=== PATIENT | male | born 1960 | race American Indian/Alaskan Native ===

== ENCOUNTER 2016-07-30 05:54 | Day surgery (SDC) | payer BC ==
[~2016-07-30 05:54] MED LIST: ANCEF/STERILE WATER 2 GM/20 ML IV NR
[2016-07-30] MEDS ORDERED: PEPCID PO NR (06:00)
[2016-07-30] MEDS ORDERED: NACL 0.9% 1000 ML 1,000 ML IV SCH (06:00)
[2016-07-30] MEDS ORDERED: VERSED IV NR ×2 (06:00→08:00)
[2016-07-30] MEDS ORDERED: NACL BACTERIOSTATIC INFILTRATI ONE (06:31)
--- NOTE | 2016-07-30 07:06 | Anesthesia Consultation ---
Anesthesia Consult and Med Hx Date of service: 07/30/16 - Airway Anesthetic Teeth Evaluation: Good ROM Head & Neck: Adequate Mental/Hyoid Distance: Adequate Mallampati Class: Class II Intubation Access Assessment: Probably Good - Pulmonary Exam CTA: Yes - Cardiac Exam Cardiac Exam: RRR - Pre-Operative Health Status ASA Pre-Surgery Classification: ASA2 Proposed Anesthetic Plan: General - Pulmonary Hx Smoking: Yes (1/2 PPD X 35 YRS) Hx Sleep Apnea: No (FLORENTIN PRESCREEN HIGH RISK) - Cardiovascular System Hx Hypertension: No - Gastrointestinal Hx Gastroesophageal Reflux Disease: Yes (food related) - Other Systems Hx Alcohol Use: Yes (2 BEERS PER DAY) Hx Cancer: No
[2016-07-30] MEDS ORDERED: ZOFRAN IV PRN (07:07)
--- NOTE | 2016-07-30 07:07 | Anesthesia Day of Surgery ---
Anesthesia Day of Surgery - Day of Surgery Patient Examined: Yes Patient H&P Reviewed: Yes Patient is NPO: Yes
[2016-07-30] MEDS ORDERED: DIPRIVAN 10 MG/ML IV ONE (07:21)
[2016-07-30] MEDS ORDERED: XYLOCAINE MPF 2% ONE (07:21)
[2016-07-30] MEDS ORDERED: DECADRON ONE (07:57)
[2016-07-30] MEDS ORDERED: WATER FOR IRRIG STERILE IR ONE (08:00)
[2016-07-30] MEDS ORDERED: PEPCID IV NR (08:00)
--- NOTE | 2016-07-30 08:39 | Short Stay Summary ---
Short Stay Documentation Date of service: 07/30/16 - History H&P: obtained from office - Allergies and Medications Current Medications: Allergies No Known Allergies Allergy (Verified 07/27/16 14:55) Home Medications Medication Instructions Recorded Confirmed Last Taken Type Aspirin [Adult Low Dose Aspirin EC] 81 mg PO DAILY 07/27/16 07/30/16 07/27/16 History Tamsulosin [Flomax] 0.4 mg PO QDAY 07/27/16 07/27/16 07/29/16 History traMADol 1 tab PO PRN PRN 07/27/16 07/27/16 07/29/16 History traZODone [Desyrel] 50 mg PO QHS 07/27/16 07/27/16 07/29/16 History Active Medications Acetaminophen/Hydrocodone Bitart ([place] 5/325) 2 each PO ONCE PRN PRN Reason: Pain, Moderate (4-6) Stop: 07/30/16 07:08 Cefazolin Sodium (Ancef/Sterile Water 2 Gm/20 Ml) 2 gm IV PREOP NR Stop: 07/30/16 23:59 Famotidine (Pepcid) 20 mg PO PREOP NR Stop: 07/30/16 23:00 Last Admin: 07/30/16 06:53 Dose: 20 mg Hydromorphone HCl (Dilaudid) 0.5 mg IV Q10MIN PRN PRN Reason: Pain , Severe (7-10) Stop: 08/02/16 07:08 Sodium Chloride (Nacl 0.9% 1000 Ml) 1,000 mls @ 75 mls/hr IV DIRECT DENTON Last Admin: 07/30/16 06:55 Dose: 75 mls/hr Midazolam HCl (Versed) 2 mg IV PREOP NR Stop: 07/30/16 23:59 Last Admin: 07/30/16 07:11 Dose: 2 mg Ondansetron HCl (Zofran) 4 mg IV ONCE PRN PRN Reason: Nausea And Vomiting Stop: 07/30/16 07:08 - Brief post op/procedure progress note Date of procedure: 07/30/16 Pre-op diagnosis: rt ureteral stone Post-op diagnosis: same Procedure: cysto, rt ureteroscopy, laser, basket stone extraction , stent with external string Anesthesia: LIDAA Surgeon: VICK MCCLURE Estimated blood loss: none Condition: stable - Hospital course Hospital course: gladys dennis, post op info on chart - Disposition Condition at discharge: Stable Disposition: DC-01 TO HOME OR SELFCARE Short Stay Discharge Plan Follow up with: PRIMARY CARE, [Primary Care Provider] - 7 Days
[2016-07-30] MEDS: DILAUDID IV PRN ×2 (08:44→09:00)
[2016-07-30] MEDS ORDERED: DILAUDID ONE (08:48)
[2016-07-30] MEDS ORDERED: NORCO 5/325 PO PRN (09:00)
--- NOTE | 2016-07-30 09:38 | Post Anesthesia Evaluation ---
- Post Anesthesia Evaluation Patient Participated: Yes Airway Patent: Yes Stable Respiratory Function: Yes Nausea/Vomiting: No Temp > 96.8F: Yes Pain Manageable: Yes Adequeate Hydration: Yes Anesthesia Complications: No
[2016-07-30 09:56] VITALS: BP 150/97
--- NOTE | 2016-07-30 10:48 | Operative Report ---
PREOPERATIVE DIAGNOSIS: Right ureteral stone. POSTOPERATIVE DIAGNOSIS: Right ureteral stone. PROCEDURE: Cystoscopy, bilateral retrograde pyelograms, right ureteroscopy, holmium laser lithotripsy, basket stone extraction, and double-J stent (6 American 26 cm with an external string). SURGEON: Richard Jo M.D. ANESTHESIA: General. ESTIMATED BLOOD LOSS: Minimal. FLUIDS: Crystalloid. COMPLICATIONS: No complications. INDICATIONS: This patient is a 56-year-old gentleman seen in the office for left bilateral stones what states was bilateral stones; however, on CT abdomen and pelvis at [facility] was found to have 2 stones in the right proximal ureter KUB in the office was negative. We discussed options. He needed ureteroscopy. His pain persisted. He agreed to proceed. DESCRIPTION OF PROCEDURE: The patient was taken to the operative suite, placed in a supine position. After adequate general anesthesia, placed in a dorsal lithotomy position, prepped and draped in a sterile fashion. Rocha-cystourethroscopy was performed with a 22 American Storz cystoscope. No urethral abnormalities. Prostate nonobstructing. Bladder, no tumors or stones were noted. Bilateral retrograde pyelograms were obtained with an 8 American Maddi catheter and 8 mL of contrast. No filling defects or obstruction. However, due to his persistent pain right ureteroscopy was performed after putting up two 0.35 guidewires mid to proximal ureter an oblong stone could be appreciated tried to engage it, it was too big. At that point, I used holmium lithotripsy using a 200 micron fiber starting at 4 lopez. The stone was broken up in fragments. A 3-American Flor basket was used to extract it. No other stones could be appreciated. He did have some edema, a 6-American 26 cm double-J stent was placed under fluoroscopic guidance with an external string he was extubated. Rectal exam was benign and taken to recovery room. He will go home on [employer]. JOB# [id number] SONG/PIERO
--- NOTE | 2016-07-31 08:59 | Fluoroscopy Report ---
Retrograde pyelogram: The noncontrasted images are unremarkable. Injection of contrast into the left ureter demonstrates an unremarkable ureter and intrarenal collecting system. Injection of contrast on the right side demonstrates a questionable transition at the UPJ with poor opacification of the intrarenal collecting system. There is no distention of the collecting system. The ureteral scope was passed on the right side with passage of wires into the renal collecting system. A right nephroureteral stent was left in place. According to the procedure note a calculus was lasered during procedure.
== END 2016-07-30 10:24 | disposition home or self-care (01) ==
LOC: OR 05:54
PROVIDERS: ATTEND Urology
DX: N20.1 Calculus of ureter (principal); F17.210 Nicotine dependence, cigarettes, uncomplicated; K21.9 Gastro-esophageal reflux disease without esophagitis; F32.9 Major depressive disorder, single episode, unspecified; Z72.89 Other problems related to lifestyle; Z79.899 Other long term (current) drug therapy; Z79.82 Long term (current) use of aspirin
CPT/HCPCS: 52356; 74420; A4217; C1758; C1769; C2617; J0690; J1100; J1170; J2250; J2405; J2704; J7030; Q9967

== ENCOUNTER 2017-11-11 19:44 | Inpatient (IN) | payer BC, OTHER ==
[2017-11-11 20:47] LABS: Basophils # (Auto) 0.1 K/mm3 (0.0-0.1); Basophils % (Auto) 0.7 % (0.0-1.8); Eosinophils % (Auto) 0.4 % (0.0-4.3); Hematocrit 46.5 % (35.5-45.6); Hemoglobin 16.2 gm/dl (11.8-15.2); Lymphocytes % (Auto) 26.5 % (13.4-35.0); Mean Corpuscular HGB Conc 35 % (32-34); Mean Corpuscular Hemoglobin 30 pg (28-32); Mean Corpuscular Volume 87 fl (84-94); Monocytes # (Auto) 0.6 K/mm3 (0.0-0.8); Monocytes % (Auto) 7.7 % (0.0-7.3); Platelet Count 210 K/mm3 (140-440); Red Blood Count 5.32 M/mm3 (3.65-5.03); Red Cell Distribution Width 13.1 % (13.2-15.2)
--- NOTE | 2017-11-11 20:56 | XRay Report ---
FINAL REPORT PROCEDURE: Chest. TECHNIQUE: Portable AP view. HISTORY: Chest pain. COMPARISON: No prior studies are available for comparison. FINDINGS: The heart size is normal. There is mild tortuosity of the thoracic aorta. The lungs are clear and well expanded. There are no pleural effusions. The soft tissues are unremarkable. The regional skeleton appears intact. IMPRESSION: No evidence of acute disease.
[2017-11-11 20:57] LABS: INR 1.14 (0.87-1.13)
[2017-11-11 20:58] LABS: Partial Thromboplastin Time 24.6 Sec. (24.2-36.6)
[2017-11-11 21:11] LABS: Alanine Aminotransferase 19 units/L (7-56); Albumin 4.3 g/dL (3.9-5); BUN/Creatinine Ratio 8; Blood Urea Nitrogen 8 mg/dL (9-20); Calcium 9.7 mg/dL (8.4-10.2); Hemolysis Index 13
[2017-11-11] MEDS ORDERED: APRESOLINE IV ONE (21:18)
[2017-11-11 21:24] LABS: Bilirubin,Urine NEG (Negative); Blood,Urine NEG (Negative); Color,Urine Straw (Yellow); Protein,Urine <15 mg/dL mg/dL (Negative); RBC,Urine < 1.0 /HPF (0.0-6.0); WBC,Urine < 1.0 /HPF (0.0-6.0)
[2017-11-11 21:38] LABS: Amphetamine Screen,Urine PRESUMPTIVE NEGATIVE; Benzodiazepines Screen,Urine PRESUMPTIVE NEGATIVE; Methadone Screen,Urine PRESUMPTIVE NEGATIVE; Opiate Screen,Urine PRESUMPTIVE NEGATIVE
[2017-11-11 22:06] LABS: Cannabinoid Screen,Urine PRESUMPTIVE POSITIVE; Cocaine Screen,Urine PRESUMPTIVE POSITIVE
[2017-11-12] MEDS ORDERED: BABY ASPIRIN PO ONE (00:30)
[2017-11-12] MEDS ORDERED: ZOFRAN IV ONE (00:30)
[2017-11-12] MEDS ORDERED: SUBLIMAZE IV ONE (00:30)
[2017-11-12] MEDS ORDERED: ATIVAN IV ONE (00:30)
--- NOTE | 2017-11-12 00:36 | Emergency Department Report ---
HPI - General Chief Complaint: Chest Pain Time Seen by Provider: 11/11/17 21:00 - HPI HPI: The patient is a 57-year-old male who presents for evaluation of chest pain. The patient reports constant midsternal moderate in severity chest pain for the past one day, exacerbated with coughing. He also reports dyspnea and mildly productive cough white sputum. He admits to binging on cocaine and crack for the past day, and concern for heart injury due to his drug use. The patient denies trauma to chest, fever, hemoptysis, unilateral leg swelling, recent immobilization, ED Past Medical Hx - Past Medical History Hx Hypertension: No Hx GERD: Yes Hx Kidney Stones: Yes - Social History Smoking Status: Current Every Day Smoker Substance Use Type: Alcohol, Cocaine - Medications Home Medications: Home Medications Medication Instructions Recorded Confirmed Last Taken Type Aspirin [Adult Low Dose Aspirin EC] 81 mg PO DAILY 07/27/16 07/30/16 07/27/16 History Tamsulosin [Flomax] 0.4 mg PO QDAY 07/27/16 07/27/16 07/29/16 History traMADol 1 tab PO PRN PRN 07/27/16 07/27/16 07/29/16 History traZODone [Desyrel] 50 mg PO QHS 07/27/16 07/27/16 07/29/16 History ED Review of Systems ROS: Stated complaint: CHEST PAIN Other details as noted in HPI Constitutional: denies: fever ENT: denies: throat or neck pain Respiratory: denies: cough, reports shortness of breath Cardiovascular: Reports chest pain Endocrine: denies unexplained weight loss or gain Gastrointestinal: denies: abdominal pain, nausea Genitourinary: denies: dysuria Musculoskeletal: denies: leg swelling Skin: denies: rash Neurological: denies: headache Hematological/Lymphatic: denies: easy bleeding or easy bruising Psych: denies sadness or hopelessness Physical Exam - Physical Exam Vital Signs: Vital Signs 11/11/17 11/11/17 11/11/17 20:11 20:16 20:21 Temperature 97.8 F Pulse Rate 84 78 84 Respiratory 14 19 20 Rate Blood Pressure 183/112 216/160 O2 Sat by Pulse 98 98 98 Oximetry 11/11/17 11/11/17 11/11/17 20:30 20:46 20:48 Temperature Pulse Rate 78 73 81 Respiratory 18 21 18 Rate Blood Pressure 183/112 183/114 O2 Sat by Pulse 99 100 Oximetry 11/11/17 21:22 Temperature Pulse Rate 84 Respiratory Rate Blood Pressure 183/113 O2 Sat by Pulse Oximetry Physical Exam: General: well-nourished, well-developed, no acute distress Head: Normocephalic, atraumatic Eyes: normal sclera ENT: Mucous membranes are pink and moist Neck: trachea midline, neck supple, No neck stiffness, no cervical adenopathy Respiratory: Breath sounds equal bilaterally, no wheezing, rales, or rhonchi Cardio: S1 and S2 present, no murmurs, rubs, gallops, capillary refill is brisk Abdomen: Normoactive bowel sounds, soft abdomen, no rigidity, no guarding or rebound tenderness Chest WALL/Back: No tenderness to palpation of the chest wall, no CVA tenderness with percussion Musc: No pitting edema Skin: Diaphoretic Neuro: no facial drooping, normal speech Psych: Normal affect ED Course Vital Signs 11/11/17 11/11/17 11/11/17 20:11 20:16 20:21 Temperature 97.8 F Pulse Rate 84 78 84 Respiratory 14 19 20 Rate Blood Pressure 183/112 216/160 O2 Sat by Pulse 98 98 98 Oximetry 11/11/17 11/11/17 11/11/17 20:30 20:46 20:48 Temperature Pulse Rate 78 73 81 Respiratory 18 21 18 Rate Blood Pressure 183/112 183/114 O2 Sat by Pulse 99 100 Oximetry 11/11/17 21:22 Temperature Pulse Rate 84 Respiratory Rate Blood Pressure 183/113 O2 Sat by Pulse Oximetry ED Medical Decision Making - Lab Data Result diagrams: 11/11/17 20:31 11/11/17 20:31 - Medical Decision Making The patient was seen and examined by myself. The patient is placed on a cardiac exercise specialist and continuous pulse ox. On initial evaluation, the patient was found to be in no distress. EKG was negative for findings suggestive of acute cardiac infarct. The patient is given an aspirin and IV fentanyl for his pain. Is given IV hydralazine for her elevated blood pressure. Labs and imaging are obtained. chest x-ray is negative for pneumothorax, focal consolidation, pulmonary vascular congestion, pleural effusion, or other obvious acute cardiopulmonary disease process. Lab results were non-revealing including negative troponin, WBC, hemoglobin, hematocrit, electrolytes, renal functi. The patient was reevaluated and reported that their symptoms were improved. As the patient has chest pain and risk factors for development of acute coronary event , the patient will be admitted for close cardiopulmonary monitoring, serial troponins, and evaluation by cardiology. The physician on-call was contacted. They presented to the emergency department and evaluated the patient. They agreed to admit the patient. The ED admit order was placed. The patient was admitted in guarded condition. Critical care attestation.: If time is entered above; I have spent that time in minutes in the direct care of this critically ill patient, excluding procedure time. ED Disposition Clinical Impression: Acute chest pain, Cocaine abuse Disposition: OP ADMIT IP TO THIS HOSP Is pt being admited?: Yes Does the pt Need Aspirin: Yes Condition: Stable Instructions: Chest Pain (ED) Referrals: PRIMARY CARE, [Primary Care Provider] - 3-5 Days Time of Disposition: 00:35
[2017-11-12] MEDS ORDERED: SODIUM CHLORIDE FLUSH SYRINGE 10 ML IV PRN ×2 (01:14→01:21)
[2017-11-12] MEDS ORDERED: MORPHINE IV PRN (01:14)
[2017-11-12] MEDS ORDERED: ZOFRAN IV PRN (01:14)
[2017-11-12] MEDS ORDERED: TYLENOL PO PRN (01:14)
[2017-11-12] MEDS ORDERED: MILK OF MAGNESIA PO PRN (01:14)
[2017-11-12] MEDS ORDERED: APRESOLINE IV PRN (01:21)
[2017-11-12] MEDS ORDERED: NITROSTAT SL PRN (02:07)
[2017-11-12 02:18] LABS: Basophils # (Auto) 0.1 K/mm3 (0.0-0.1); Basophils % (Auto) 0.8 % (0.0-1.8); Eosinophils # (Auto) 0.1 K/mm3 (0.0-0.4); Eosinophils % (Auto) 1.3 % (0.0-4.3); Hematocrit 46.1 % (35.5-45.6); Hemoglobin 15.6 gm/dl (11.8-15.2); Lymphocytes # (Auto) 2.1 K/mm3 (1.2-5.4); Lymphocytes % (Auto) 31.9 % (13.4-35.0); Mean Corpuscular HGB Conc 34 % (32-34); Mean Corpuscular Hemoglobin 30 pg (28-32); Mean Corpuscular Volume 89 fl (84-94); Monocytes # (Auto) 0.7 K/mm3 (0.0-0.8); Platelet Count 200 K/mm3 (140-440); Red Cell Distribution Width 13.3 % (13.2-15.2)
[2017-11-12 02:31] LABS: BUN/Creatinine Ratio 10; Blood Urea Nitrogen 9 mg/dL (9-20); Calcium 9.3 mg/dL (8.4-10.2); Hemolysis Index 10
[2017-11-12] MEDS: NITRO-BID 2% TP SCH ×4 (02:32→17:01)
[2017-11-12] MEDS: SENOKOT PO SCH ×2 (02:32→13:01)
[2017-11-12 02:45] LABS: Chol/HDL Ratio 2.27 %
[2017-11-12] MEDS ORDERED: NITRO-BID 2% TP ONE (03:03)
[2017-11-12] MEDS ORDERED: LIBRIUM PO PRN (04:48)
[2017-11-12] MEDS ORDERED: HALDOL IV PRN (04:48)
[2017-11-12] MEDS ORDERED: ATIVAN IV PRN (04:48)
--- NOTE | 2017-11-12 05:07 | History and Physical Report ---
History of Present Illness Date of examination: 11/12/17 Date of admission: 11/12/17 01:14 Chief complaint: Chest pain in palpitation History of present illness: Pt is a 57-year-old male with PMHx of BPH, depression and insomnia who presents to the ER with c/o chest pain. Pt states that the chest pain started after 3 weeks crack/cocaine and alcohol binge, pt reports that the pain started suddenly after his last dose of cocaine, it is a constant midsternal pain associated with SOB and palpitation. Pt also reports some personnel issue that makes him depressed and lead to the cocaine used, reports mild productive cough with white sputum. Pt denies diaphroresis, denies nausea, denies vomiting, denies headache, denies pain with deep breath, denies fever, denies chills. On arrival to the ER, pt's BP was 216/160, his EKG shows prolonged QT, left arterial enlargement, no STEMI, his first CE was negative. pt was evaluated in the ER and admitted for chest pain and hypertensive urgency. Past History Past Medical History: other (Depression, Insomnia, BPH) Past Surgical History: No surgical history Social history: alcohol abuse (12paks/pd), other (Cocaine, marijuana ) Family history: no significant family history Medications and Allergies Allergies Allergy/AdvReac Type Severity Reaction Status Date / Time No Known Allergies Allergy Verified 07/27/16 14:55 Home Medications Medication Instructions Recorded Confirmed Last Taken Type Aspirin [Adult Low Dose Aspirin EC] 81 mg PO DAILY 07/27/16 07/30/16 07/27/16 History Tamsulosin [Flomax] 0.4 mg PO QDAY 07/27/16 07/27/16 07/29/16 History traMADol 1 tab PO PRN PRN 07/27/16 07/27/16 07/29/16 History traZODone [Desyrel] 50 mg PO QHS 07/27/16 07/27/16 07/29/16 History Active Meds: Active Medications Acetaminophen (Tylenol) 650 mg PO Q4H PRN PRN Reason: Pain MILD(1-3)/Fever >100.5/MACHADO Aspirin (Ecotrin) 325 mg PO QDAY DENTON Chlordiazepoxide HCl (Librium) 100 mg PO Q4HR PRN PRN Reason: CIWA-Ar 16-25 Haloperidol Lactate (Haldol) 5 mg IV Q2HR PRN PRN Reason: Unrespon. to mult. doses BZD's Hydralazine HCl (Apresoline) 10 mg IV Q6H PRN PRN Reason: FOR SBP > target Lorazepam (Ativan) 2 mg IV Q2HR PRN PRN Reason: CIWA-Ar 16-25 Magnesium Hydroxide (Milk Of Magnesia) 30 ml PO Q4H PRN PRN Reason: Constipation Morphine Sulfate (Morphine) 2 mg IV Q4H PRN PRN Reason: Pain, Moderate (4-6) Nitroglycerin (Nitrostat) 0.4 mg SL .Q5MIN PRN PRN Reason: Chest Pain Nitroglycerin (Nitro-Bid 2%) 0.5 inch TP QIDNTG [facility], 1928[facility]1983; Protocol Last Admin: 11/12/17 02:32 Dose: 0.5 inch Ondansetron HCl (Zofran) 4 mg IV Q8H PRN PRN Reason: Nausea And Vomiting Senna (Senokot) 8.6 mg PO Q12HR [facility]1983 Last Admin: 11/12/17 02:32 Dose: 8.6 mg Sodium Chloride (Sodium Chloride Flush Syringe 10 Ml) 10 ml IV BID [facility]1983 Sodium Chloride (Sodium Chloride Flush Syringe 10 Ml) 10 ml IV PRN PRN PRN Reason: LINE FLUSH Sodium Chloride (Sodium Chloride Flush Syringe 10 Ml) 10 ml IV PRN PRN PRN Reason: LINE FLUSH Review of Systems Cardiovascular: chest pain, palpitations, high blood pressure Respiratory: cough, cough with sputum Exam - Constitutional Vitals: Temp Pulse Resp BP Pulse Ox 99.0 F 79 20 133/85 99 11/12/17 04:01 11/12/17 04:01 11/12/17 04:01 11/12/17 04:41 11/12/17 04:01 General appearance: Present: no acute distress - EENT Eyes: Present: EOM intact ENT: hearing intact - Respiratory Respiratory effort: normal - Cardiovascular Rhythm: other - Extremities Extremities: pulses symmetrical, No edema, abnormal (heart sound) Peripheral Pulses: within normal limits - Abdominal General gastrointestinal: Present: soft, non-tender, non-distended Male genitourinary: Present: deferred - Rectal Rectal Exam: deferred - Integumentary Integumentary: Present: warm, dry - Musculoskeletal Musculoskeletal: generalized weakness - Psychiatric Psychiatric: cooperative - Neurologic Neurologic: moves all extremities Results - Labs CBC & Chem 7: 11/12/17 02:07 11/12/17 02:07 Labs: Laboratory Last Values WBC 6.6 K/mm3 (4.5-11.0) 11/12/17 02:07 RBC 5.20 M/mm3 (3.65-5.03) H 11/12/17 02:07 Hgb 15.6 gm/dl (11.8-15.2) H 11/12/17 02:07 Hct 46.1 % (35.5-45.6) H 11/12/17 02:07 MCV 89 fl (84-94) 11/12/17 02:07 MCH 30 pg (28-32) 11/12/17 02:07 MCHC 34 % (32-34) 11/12/17 02:07 RDW 13.3 % (13.2-15.2) 11/12/17 02:07 Plt Count 200 K/mm3 (140-440) 11/12/17 02:07 Lymph % (Auto) 31.9 % (13.4-35.0) 11/12/17 02:07 [place] % (Auto) 11.0 % (0.0-7.3) H 11/12/17 02:07 Eos % (Auto) 1.3 % (0.0-4.3) 11/12/17 02:07 Baso % (Auto) 0.8 % (0.0-1.8) 11/12/17 02:07 Lymph # 2.1 K/mm3 (1.2-5.4) 11/12/17 02:07 [place] # 0.7 K/mm3 (0.0-0.8) 11/12/17 02:07 Eos # 0.1 K/mm3 (0.0-0.4) 11/12/17 02:07 Baso # 0.1 K/mm3 (0.0-0.1) 11/12/17 02:07 Seg Neutrophils % 55.0 % (40.0-70.0) 11/12/17 02:07 Seg Neutrophils # 3.6 K/mm3 (1.8-7.7) 11/12/17 02:07 PT 15.1 Sec. (12.2-14.9) H 11/11/17 20:31 INR 1.14 (0.87-1.13) H 11/11/17 20:31 APTT 24.6 Sec. (24.2-36.6) 11/11/17 20:31 Sodium 139 mmol/L (137-145) 11/12/17 02:07 Potassium 3.2 mmol/L (3.6-5.0) L 11/12/17 02:07 Chloride 102.6 mmol/L (98-107) 11/12/17 02:07 Carbon Dioxide 27 mmol/L (22-30) 11/12/17 02:07 Anion Gap 13 mmol/L 11/12/17 02:07 BUN 9 mg/dL (9-20) 11/12/17 02:07 Creatinine 0.9 mg/dL (0.8-1.5) 11/12/17 02:07 Estimated GFR > 60 ml/min 11/12/17 02:07 BUN/Creatinine Ratio 10 % 11/12/17 02:07 Glucose 101 mg/dL (75-100) H 11/12/17 02:07 Calcium 9.3 mg/dL (8.4-10.2) 11/12/17 02:07 Total Bilirubin 0.90 mg/dL (0.1-1.2) 11/11/17 20:31 AST 25 units/L (5-40) 11/11/17 20:31 ALT 19 units/L (7-56) 11/11/17 20:31 Alkaline Phosphatase 58 units/L (35-129) 11/11/17 20:31 Troponin T < 0.010 ng/mL (0.00-0.029) 11/11/17 20:31 Total Protein 6.8 g/dL (6.3-8.2) 11/11/17 20:31 Albumin 4.3 g/dL (3.9-5) 11/11/17 20:31 Albumin/Globulin Ratio 1.7 % 11/11/17 20:31 Triglycerides 72 mg/dL (2-149) 11/12/17 02:07 Cholesterol 148 mg/dL (50-199) 11/12/17 02:07 LDL Cholesterol Direct 82 mg/dL (50-130) 11/12/17 02:07 HDL Cholesterol 65 mg/dL (40-59) H 11/12/17 02:07 Cholesterol/HDL Ratio 2.27 % 11/12/17 02:07 Urine Color Straw (Yellow) 11/11/17 20:48 Urine Turbidity Clear (Clear) 11/11/17 20:48 Urine pH 7.0 (5.0-7.0) 11/11/17 20:48 Ur Specific [place] 1.003 (1.003-1.030) 11/11/17 20:48 Urine Protein <15 mg/dl mg/dL (Negative) 11/11/17 20:48 Urine Glucose (UA) Neg mg/dL (Negative) 11/11/17 20:48 Urine Ketones Neg mg/dL (Negative) 11/11/17 20:48 Urine Blood Neg (Negative) 11/11/17 20:48 Urine Nitrite Neg (Negative) 11/11/17 20:48 Urine Bilirubin Neg (Negative) 11/11/17 20:48 Urine Urobilinogen 2.0 mg/dL (<2.0) 11/11/17 20:48 Ur Leukocyte Esterase Neg (Negative) 11/11/17 20:48 Urine WBC (Auto) < 1.0 /HPF (0.0-6.0) 11/11/17 20:48 Urine RBC (Auto) < 1.0 /HPF (0.0-6.0) 11/11/17 20:48 Urine Opiates Screen Presumptive negative 11/11/17 20:48 Urine Methadone Screen Presumptive negative 11/11/17 20:48 Ur Barbiturates Screen Presumptive negative 11/11/17 20:48 Ur Phencyclidine Scrn Presumptive negative 11/11/17 20:48 Ur Amphetamines Screen Presumptive negative 11/11/17 20:48 U Benzodiazepines Scrn Presumptive negative 11/11/17 20:48 Urine Cocaine Screen Presumptive positive 11/11/17 20:48 U Marijuana (THC) Screen Presumptive positive 11/11/17 20:48 Drugs of Abuse Note Disclamer 11/11/17 20:48 Plasma/Serum Alcohol < 0.01 % (0-0.07) 11/11/17 21:21 Assessment and Plan Assessment and plan: 1. Drug induce chest pain 2. Hypertensive urgency 3. Cocaine use disorder 4. Hypokalemia 5. insomnia 6. Depression 7. BPH Plan Admit to [facility] for chest pain Continue CE Q6hr x2 more Nitro PRN for chest pain Repeat EKG in am Morphine PRN for chest pain Hydrolyzing PRN for SBP >160 CIWA protocol Potassium replacement Resume home meds Stress test in am Further plan per hospital course Pt's condition and plan of care of care discussed with the attending Advance Directives: Yes VTE prophylaxis?: Mechanical Plan of care discussed with patient/family: Yes
[2017-11-12] MEDS ORDERED: SODIUM CHLORIDE FLUSH SYRINGE 10 ML IV SCH (10:00)
[2017-11-12] MEDS ORDERED: LEXISCAN IV ONE ×2 (10:51)
[2017-11-12] MEDS ORDERED: AFLURIA QUAD 2018-2019 SYRINGE IM ONE (12:00)
[2017-11-12 13:41] VITALS: BP 156/105
[2017-11-12] MEDS ORDERED: TRAMADOL PO PRN (14:31)
--- NOTE | 2017-11-12 14:47 | Discharge Summary ---
Providers - Providers Date of Admission: 11/12/17 01:14 Date of discharge: 11/12/17 Attending physician: NATHANIEL ANTONIO 11/12/17 Consult to Cardiac Rehabilitation [CONS] Routine Reason For Exam: Phase I Primary care physician: [employer] Hospitalization Condition: Stable Hospital course: Assessment and Plan 1. Drug induce chest pain 2. Hypertensive urgency 3. Cocaine use disorder 4. Hypokalemia 5. insomnia 6. Depression 7. BPH Plan Stress test --Negative Potassium replacement Resume home meds Patient informed about stress test and need for stopping Cocaine Disposition: DC-01 TO HOME OR SELFCARE Core Measure Documentation - Palliative Care Palliative Care/ Comfort Measures: Not Applicable - Core Measures Any of the following diagnoses?: none Exam - Constitutional Vitals: Temp Pulse Resp BP Pulse Ox 98.3 F 96 H 20 156/105 97 11/12/17 07:43 11/12/17 11:14 11/12/17 07:43 11/12/17 11:14 11/12/17 07:43 General appearance: Present: no acute distress, well-nourished - EENT Eyes: Present: PERRL ENT: hearing intact, clear oral mucosa - Neck Neck: Present: supple, normal ROM - Respiratory Respiratory effort: normal Respiratory: bilateral: CTA - Cardiovascular Heart rate: 78 Rhythm: regular Heart Sounds: Present: S1 & S2. Absent: rub, click - Extremities Extremities: no ischemia, pulses intact, pulses symmetrical, No edema Peripheral Pulses: within normal limits - Abdominal General gastrointestinal: Present: soft, non-tender, non-distended, normal bowel sounds Male genitourinary: Present: normal - Integumentary Integumentary: Present: clear, warm, dry - Musculoskeletal Musculoskeletal: gait normal, strength equal bilaterally - Psychiatric Psychiatric: appropriate mood/affect, intact judgment & insight - Neurologic Neurologic: CNII-XII intact, moves all extremities - Allied Health Allied health notes reviewed: nursing, case management Plan Activity: no restrictions Diet: low cholesterol, low salt Follow up with: PRIMARY CARE, [Primary Care Provider] - 3-5 Days
[2017-11-12] MEDS ORDERED: ULTRAM PO PRN (14:56)
[2017-11-12] MEDS ORDERED: K-DUR PO ONE (15:47)
[2017-11-12] MEDS ORDERED: HALFPRIN EC PO SCH (16:00)
[2017-11-12] MEDS ORDERED: FLOMAX PO SCH (16:00)
[2017-11-12] MEDS ORDERED: DESYREL PO SCH (22:00)
[2017-11-13] MEDS ORDERED: ECOTRIN PO SCH (10:00)
== END 2017-11-12 17:27 | disposition home or self-care (01) | DRG 918 ==
LOC: ED 19:44 → 4A 11-12 01:14
PROVIDERS: ADMIT Internal Medicine; ATTEND Internal Medicine
DX: T40.5X1A Poisoning by cocaine, accidental (unintentional), initial encounter (principal); R07.9 Chest pain, unspecified; Y92.9 Unspecified place or not applicable; I16.0 Hypertensive urgency; F10.10 Alcohol abuse, uncomplicated; F14.19 Cocaine abuse with unspecified cocaine-induced disorder; E87.6 Hypokalemia; F32.9 Major depressive disorder, single episode, unspecified; N40.0 Benign prostatic hyperplasia without lower urinary tract symptoms; F17.210 Nicotine dependence, cigarettes, uncomplicated; Y90.0 Blood alcohol level of less than 20 mg/100 ml; F14.188 Cocaine abuse with other cocaine-induced disorder; K21.9 Gastro-esophageal reflux disease without esophagitis; Z87.442 Personal history of urinary calculi; Z79.82 Long term (current) use of aspirin; Z79.899 Other long term (current) drug therapy; Z71.6 Tobacco abuse counseling
CPT/HCPCS: 36415; 71045; 78452; 80048; 80053; 80061; 80307; 80320; 81001; 84484; 85025; 85610; 85730; 90686; 93005; 93010; 93017; 96374; 96375; 99406; A9502; G0480; J0360; J2060; J2405; J2785; J3010